=== PATIENT | male | born 1980 | race Caucasian/White ===

== ENCOUNTER 2016-07-23 09:56 | Emergency (ER) | payer SELFPAY ==
[~2016-07-23] VITALS: Ht 182.9 cm; Wt 83.6 kg
[2016-07-23] MEDS ORDERED: LORTAB 5-325 M1 EACH PO (11:24)
[2016-07-23] MEDS ORDERED: CLINDAMYCIN HC300 MG PO (11:24)
[2016-07-23] MEDS ORDERED: NAPROSYN500 MG PO (11:24)
[2016-07-23 12:02] VITALS: BP 120/79
== END 2016-07-23 12:03 | disposition home or self-care (01) ==
LOC: EME 09:56 → EDBD 09:56 → EME 12:03
PROC: 3E0234Z Introduction of Serum, Toxoid and Vaccine into Muscle, Percutaneous Approach (ICD-10-PCS; principal; 2016-07-23)
DX: K61.1 Rectal abscess (principal); Z23 Encounter for immunization; F17.200 Nicotine dependence, unspecified, uncomplicated; Z71.6 Tobacco abuse counseling; Z87.2 Personal history of diseases of the skin and subcutaneous tissue
CPT/HCPCS: 99281; 99283; J1885

== ENCOUNTER 2016-07-23 15:47 | Inpatient (IN) | payer SELFPAY ==
[~2016-07-23] VITALS: Ht 180.3 cm; Wt 81.1 kg
[~2016-07-23 15:47] MED LIST: CLINDAMYCIN HC300 MG PO; LORTAB 5-325 M1 EACH PO; NAPROSYN500 MG PO
[2016-07-23 16:29] LABS: HEMATOCRIT 41.1 % (38.0-50.0); MCV 88.6 FL (86-99); MEAN PLAT.VOLUME 10.3 uM^3 (9.0-12.4); PLATELET COUNT 218 K/uL (156-360); RBC DIS.WIDTH-CV 12.6 % (11.8-14.6); RBC DIS.WIDTH-SD 40.5 % (39-53); RED BLOOD COUNT 4.64 M/uL (4.00-5.50); WHITE BLOOD COUNT 23.6 K/uL (4.1-10.2)
[2016-07-23 16:30] VITALS: BP 139/73
[2016-07-23 16:52] LABS: ANION GAP 8 MEQ/L (2-14); CHLORIDE 105 MEQ/L (99-109); GFR ESTIMATE (CALCULATED) > 59 mL/min/; GLUCOSE 108 mg/dL (70-99); POTASSIUM 3.6 MEQ/L (3.7-5.4); SAMPLE HEMOLYSIS CHECK 0; SAMPLE ICTERIC CHECK 0; SAMPLE LIPEMIA CHECK 0; SODIUM 139 MEQ/L (136-147); UREA NITROGEN (BUN) 13 mg/dL (9-23)
[2016-07-23 21:25] LABS: ADD MIUA? NO; BILIRUBIN NEGATIVE; BLOOD NEGATIVE; COLOR DK YELLOW ((YELLOW)); GLUCOSE (STRIP) NEGATIVE; KETONES NEGATIVE; LEUKOCYTES NEGATIVE; NITRITE NEGATIVE; PH, URINE 6.5 (5-8); PROTEIN (STRIP) TRACE
[2016-07-23 21:47] LABS: SPECIFIC GRAVITY 1.042 (1.000-1.030)
[2016-07-23 22:20] VITALS: BP 121/63
[2016-07-24 08:06] VITALS: BP 129/64
[2016-07-24 09:22] VITALS: BP 129/65
[2016-07-24 12:08] LABS: HEMATOCRIT 40.6 % (38.0-50.0); MCH 29.6 PG (29.0-34.0); MCHC 33.3 G/DL (30.0-36.0); MEAN PLAT.VOLUME 10.3 uM^3 (9.0-12.4); PLATELET COUNT 199 K/uL (156-360); RBC DIS.WIDTH-CV 12.7 % (11.8-14.6); RBC DIS.WIDTH-SD 40.9 % (39-53); RED BLOOD COUNT 4.56 M/uL (4.00-5.50); WHITE BLOOD COUNT 23.5 K/uL (4.1-10.2)
[2016-07-24 12:15] LABS: EOSINOPHIL (%) 1.6 % (0-5); EOSINOPHIL COUNT 0.4 K/uL (0-0.3); IMMATURE GRANULOCYTE (%) 0.2 % (0.0-0.7); IMMATURE GRANULOCYTE COUNT 0.1 K/uL; LYMPHOCYTE COUNT 1.8 K/uL (1.0-2.8); MONOCYTE (%) 7.6 % (3-12); MONOCYTE COUNT 1.8 K/uL (0-0.8); NEUTROPHIL (%) 82.8 % (45-76); NEUTROPHIL COUNT 19.4 K/uL (1.8-6.4)
[2016-07-24 16:48] VITALS: BP 97/54
[2016-07-24 23:49] VITALS: BP 115/65
[2016-07-25 07:18] LABS: MCH 30.8 PG (29.0-34.0); MCHC 34.6 G/DL (30.0-36.0); MCV 88.8 FL (86-99); MEAN PLAT.VOLUME 10.6 uM^3 (9.0-12.4); PLATELET COUNT 216 K/uL (156-360); RBC DIS.WIDTH-CV 12.6 % (11.8-14.6); RBC DIS.WIDTH-SD 40.7 % (39-53); RED BLOOD COUNT 4.39 M/uL (4.00-5.50)
[2016-07-25 07:25] LABS: WHITE BLOOD COUNT 14.6 K/uL (4.1-10.2)
[2016-07-25 07:53] VITALS: BP 111/70
[2016-07-25 15:57] VITALS: BP 120/71
[2016-07-25 22:36] VITALS: BP 119/59
[2016-07-26 06:50] LABS: HEMATOCRIT 40.6 % (38.0-50.0); MCH 29.6 PG (29.0-34.0); MCHC 33.5 G/DL (30.0-36.0); MCV 88.5 FL (86-99); MEAN PLAT.VOLUME 10.2 uM^3 (9.0-12.4); RBC DIS.WIDTH-CV 12.5 % (11.8-14.6); RBC DIS.WIDTH-SD 40.1 % (39-53); RED BLOOD COUNT 4.59 M/uL (4.00-5.50)
[2016-07-26 06:52] LABS: PLATELET COUNT 282 K/uL (156-360); WHITE BLOOD COUNT 9.4 K/uL (4.1-10.2)
[2016-07-26 06:58] LABS: GFR ESTIMATE (CALCULATED) > 59 mL/min/
[2016-07-26] MEDS ORDERED: BACTRIM,SEPT1 TABLET PO (07:56)
[2016-07-26] MEDS ORDERED: LORTAB 5-325 M1 EACH PO (07:56)
[2016-07-26 08:14] VITALS: BP 109/61
== END 2016-07-26 11:22 | disposition home or self-care (01) | DRG 394 ==
LOC: 5EAST 15:47
PROVIDERS: Physician Assistant Surgical; Surgery
PROC: 0W9M0ZZ Drainage of Male Perineum, Open Approach (ICD-10-PCS; principal; 2016-07-24)
DX: K61.1 Rectal abscess (principal); L03.317 Cellulitis of buttock; B95.62 Methicillin resistant Staphylococcus aureus infection as the cause of diseases classified elsewhere; F17.200 Nicotine dependence, unspecified, uncomplicated
CPT/HCPCS: 72193; 80048; 80202; 81003; 82565; 83605; 85025; 85027; 87070; 87075; 87076; 87077; 87147; 87186; 87205; J1170; J2543; J3370; J7050; J7120